=== PATIENT | female | born 1990 | race African-American/Black ===

== ENCOUNTER 2017-07-09 22:25 | Inpatient (IN) | payer SELFPAY ==
[2017-07-09] MEDS: IOHEXOL 300 MG/ML 100ML VIAL. IV (01:00)
[2017-07-09] MEDS: IOHEXOL 240 MG/ML 50ML VIAL. PO (01:00)
[2017-07-09 23:05] LABS: ADD MAN DIFF? NO
[2017-07-09 23:06] LABS: BASO # 0.1 x10^3/uL (0.0-0.2); BASO % 1 % (0-3); EOS # 0.2 x10^3/uL (0.0-0.7); EOS % 3 % (0-3); HEMATOCRIT 36.8 % (36.0-47.0); HEMOGLOBIN 11.6 g/dL (12.0-15.5); LYMPH # 1.8 x10^3/uL (1.0-4.8); LYMPH % 22 % (24-48); MEAN CORPUSCULAR HEMOGLOBIN 23 pg (25-35); MEAN CORPUSCULAR HGB CONC 32 g/dL (31-37); MEAN CORPUSCULAR VOLUME 73 fL (79-100); MONO # 0.6 x10^3/uL (0.0-1.1); MONO % 8 % (0-9); NEUT # 5.3 x10^3uL (1.8-7.7); NEUT % 66 % (31-73); PLATELET COUNT 458 x10^3/uL (140-400); RED BLOOD COUNT 5.02 x10^6/uL (3.50-5.40); RED CELL DISTRIBUTION WIDTH 18.3 % (11.5-14.5)
[2017-07-09] MEDS ORDERED: CONTRAST GIVEN MC (23:15)
[2017-07-09] MEDS: ONDANSETRON PF 4 MG/2 ML VIAL. IV (23:17)
[2017-07-09] MEDS: MORPHINE SULFATE 4 MG/ML DISP.SYRIN. IV (23:17)
[2017-07-09] MEDS: MIDAZOLAM HCL/PF 2 MG/2 ML VIAL. IV (23:17)
[2017-07-09 23:19] LABS: ANION GAP 10 (6-14); BLOOD UREA NITROGEN 8 mg/dL (7-20); BUN/CREATININE RATIO 13 (6-20); CALCIUM 8.8 mg/dL (8.5-10.1); CARBON DIOXIDE 25 mmol/L (21-32); CHLORIDE 105 mmol/L (98-107); CREATININE 0.6 mg/dL (0.6-1.0); GFR 145.1; GLUCOSE 88 mg/dL (70-99); POTASSIUM 3.2 mmol/L (3.5-5.1); SODIUM 140 mmol/L (136-145)
[2017-07-09 23:23] LABS: URINE HCG POC HCG NEGATIVE (Negative)
[2017-07-09 23:23] LABS: BILIRUBIN,URINE SMALL (NEG); CLARITY,URINE CLEAR; COLOR,URINE AMBER; GLUCOSE,URINE NEGATIVE (NEG); NITRITE,URINE NEGATIVE (NEG); PH,URINE 6.5; PROTEIN,URINE NEGATIVE (NEG-TRACE); UROBILINOGEN,URINE >=8.0 mg/dL (0.2 mg/dL)
[2017-07-09 23:26] LABS: ALBUMIN 3.2 g/dL (3.4-5.0); ALBUMIN/GLOBULIN RATIO 0.7 (1.0-1.7); ALK PHOS 105 U/L (46-116); ALT (SGPT) 68 U/L (14-59); AST (SGOT) 178 U/L (15-37); TOTAL BILIRUBIN 0.4 mg/dL (0.2-1.0); TOTAL PROTEIN 7.5 g/dL (6.4-8.2)
[2017-07-09 23:28] LABS: BACTERIA,URINE 0 /HPF (0-FEW); HYALINE CASTS, URINE FEW /HPF; RBC,URINE OCC /HPF (0-2); SQUAMOUS EPITHELIAL CELL,UR OCC /LPF
[2017-07-09 23:30] LABS: BARBITURATES NEG (NEG); BENZODIAZEPINES NEG (NEG); CANNABINOIDS NEG (NEG); COCAINE NEG (NEG); METHADONE NEG (NEG); OPIATES NEG (NEG); PHENCYCLIDINE NEG (NEG)
[2017-07-09 23:33] LABS: AMPHETAMINE/METHAMPHETAMINE NEG (NEG); ETHANOL, URINE POS (NEG)
[2017-07-09 23:40] LABS: LIPASE 3566 U/L (73-393)
[2017-07-10] MEDS: MORPHINE SULFATE 4 MG/ML DISP.SYRIN. IV ×2 (00:30→20:51)
[2017-07-10] MEDS ORDERED: INFLUENZA VAX SCREEN BY RX. MC (09:00)
[2017-07-10] MEDS ORDERED: PNEUMOCOCCAL VAX SCREEN BY RX. MC (09:00)
[2017-07-10] MEDS: PNEUMOC CONJ VACC 23-VALENT 0.5 ML VIAL. VAX IM (09:32)
[2017-07-10] MEDS: FLU VACC QS2017-18 (36MOS+)/PF 0.5 ML SYRINGE. VAX IM (09:33)
[2017-07-10] MEDS: ACETAMINOPHEN 325 MG TABLET. PO (13:31)
[2017-07-10] MEDS: PANTOPRAZOLE 40 MG TABLET.DR. PO (16:45)
[2017-07-10] MEDS: IV NORMAL SALINE 1000ML BAG 1,000 ML IV (16:46)
[2017-07-11] MEDS: MORPHINE SULFATE 4 MG/ML DISP.SYRIN. IV ×4 (02:58→22:23)
[2017-07-11] MEDS: PANTOPRAZOLE 40 MG TABLET.DR. PO (08:16)
[2017-07-12] MEDS: MORPHINE SULFATE 4 MG/ML DISP.SYRIN. IV ×2 (03:31→23:39)
[2017-07-12] MEDS: fentaNYL PF VIAL 100 MCG/2 ML VIAL IV ×5 (05:23→22:28)
[2017-07-12] MEDS: PANTOPRAZOLE 40 MG TABLET.DR. PO ×2 (07:30→08:18)
[2017-07-12 10:28] LABS: ADD MAN DIFF? NO
[2017-07-12 10:46] LABS: BASO # 0.2 x10^3/uL (0.0-0.2); BASO % 3 % (0-3); EOS # 0.6 x10^3/uL (0.0-0.7); EOS % 10 % (0-3); HEMATOCRIT 34.8 % (36.0-47.0); HEMOGLOBIN 10.6 g/dL (12.0-15.5); LYMPH # 1.6 x10^3/uL (1.0-4.8); LYMPH % 28 % (24-48); MEAN CORPUSCULAR HEMOGLOBIN 23 pg (25-35); MEAN CORPUSCULAR HGB CONC 31 g/dL (31-37); MEAN CORPUSCULAR VOLUME 74 fL (79-100); MONO # 0.7 x10^3/uL (0.0-1.1); MONO % 11 % (0-9); NEUT # 2.9 x10^3uL (1.8-7.7); NEUT % 48 % (31-73); PLATELET COUNT 379 x10^3/uL (140-400); RED BLOOD COUNT 4.69 x10^6/uL (3.50-5.40); RED CELL DISTRIBUTION WIDTH 18.4 % (11.5-14.5)
[2017-07-12 10:57] LABS: ALBUMIN 2.6 g/dL (3.4-5.0); ALBUMIN/GLOBULIN RATIO 0.7 (1.0-1.7); ALK PHOS 118 U/L (46-116); ALT (SGPT) 107 U/L (14-59); ANION GAP 7 (6-14); AST (SGOT) 43 U/L (15-37); BLOOD UREA NITROGEN 3 mg/dL (7-20); BUN/CREATININE RATIO 5 (6-20); CALCIUM 8.5 mg/dL (8.5-10.1); CARBON DIOXIDE 28 mmol/L (21-32); CHLORIDE 106 mmol/L (98-107); CREATININE 0.6 mg/dL (0.6-1.0); GFR 145.1; GLUCOSE 81 mg/dL (70-99); LIPASE 72 U/L (73-393); POTASSIUM 3.9 mmol/L (3.5-5.1); SODIUM 141 mmol/L (136-145); TOTAL BILIRUBIN 0.2 mg/dL (0.2-1.0); TOTAL PROTEIN 6.3 g/dL (6.4-8.2)
[2017-07-12 11:50] LABS: HYPOCHROMIA PRESENT; MICROCYTOSIS PRESENT; PLT ESTIMATE ADEQUATE (ADEQUATE); POLYCHROMASIA PRESENT
[2017-07-12] MEDS: ONDANSETRON PF 4 MG/2 ML VIAL. IV (19:16)
[2017-07-13] MEDS: ACETAMINOPHEN 325 MG TABLET. PO (01:03)
[2017-07-13] MEDS: ONDANSETRON PF 4 MG/2 ML VIAL. IV (01:04)
[2017-07-13] MEDS: fentaNYL PF VIAL 100 MCG/2 ML VIAL IV ×5 (04:37→19:20)
[2017-07-13] MEDS: PANTOPRAZOLE 40 MG TABLET.DR. PO (07:56)
[2017-07-13] MEDS: MORPHINE SULFATE 4 MG/ML DISP.SYRIN. IV ×3 (10:02→22:50)
[2017-07-14] MEDS: ACETAMINOPHEN 325 MG TABLET. PO (00:12)
[2017-07-14] MEDS: fentaNYL PF VIAL 100 MCG/2 ML VIAL IV ×5 (00:13→22:52)
[2017-07-14] MEDS: MORPHINE SULFATE 4 MG/ML DISP.SYRIN. IV (04:00)
[2017-07-14 04:29] LABS: ADD MAN DIFF? NO
[2017-07-14 04:34] LABS: BASO # 0.1 x10^3/uL (0.0-0.2); BASO % 1 % (0-3); EOS # 0.7 x10^3/uL (0.0-0.7); EOS % 9 % (0-3); HEMATOCRIT 31.6 % (36.0-47.0); LYMPH # 2.3 x10^3/uL (1.0-4.8); LYMPH % 31 % (24-48); MEAN CORPUSCULAR HEMOGLOBIN 24 pg (25-35); MEAN CORPUSCULAR HGB CONC 32 g/dL (31-37); MEAN CORPUSCULAR VOLUME 75 fL (79-100); MONO # 0.6 x10^3/uL (0.0-1.1); MONO % 8 % (0-9); NEUT # 3.8 x10^3uL (1.8-7.7); NEUT % 51 % (31-73); PLATELET COUNT 379 x10^3/uL (140-400); RED BLOOD COUNT 4.24 x10^6/uL (3.50-5.40); RED CELL DISTRIBUTION WIDTH 18.4 % (11.5-14.5); WHITE BLOOD COUNT 7.5 x10^3/uL (4.0-11.0)
[2017-07-14 04:52] LABS: ANION GAP 9 (6-14); BLOOD UREA NITROGEN 7 mg/dL (7-20); CALCIUM 8.7 mg/dL (8.5-10.1); CARBON DIOXIDE 25 mmol/L (21-32); CHLORIDE 108 mmol/L (98-107); CREATININE 0.6 mg/dL (0.6-1.0); GFR 145.1; GLUCOSE 78 mg/dL (70-99); LIPASE 60 U/L (73-393); POTASSIUM 3.9 mmol/L (3.5-5.1); SODIUM 142 mmol/L (136-145)
[2017-07-14] MEDS ORDERED: LIDOCAINE 1% PF 2 ML VIAL. ID (07:00)
[2017-07-14] MEDS ORDERED: MORPHINE SULFATE 2 MG/ML DISP.SYRIN. IV (07:00)
[2017-07-14] MEDS ORDERED: fentaNYL PF VIAL 100 MCG/2 ML VIAL IV (07:00)
[2017-07-14] MEDS ORDERED: ONDANSETRON PF 4 MG/2 ML VIAL. IV (07:00)
[2017-07-14] MEDS ORDERED: PROCHLORPERAZINE 10 MG/2 ML VIAL. IV (07:00)
[2017-07-14] MEDS: PANTOPRAZOLE 40 MG TABLET.DR. PO (07:30)
[2017-07-14] MEDS ORDERED: SURGICEL HEMOSTAT 4X8 EACH. (09:18)
[2017-07-14] MEDS: IOHEXOL 300 MG/ML 100ML VIAL. (09:29)
[2017-07-14] MEDS: BUPIVAC MPF-EPI 0.5%-1:200000 30 ML VIAL. (09:29)
[2017-07-14] MEDS: BUPIVAC MPF-EPI 0.5%-1:200000 30 ML VIAL. INJ (09:30)
[2017-07-14] MEDS: IV RINGERS,LACTATED 1000ML 1,000 ML IV (10:13)
[2017-07-14] MEDS ORDERED: ROCURONIUM 50 MG/5 ML VIAL. (10:23)
[2017-07-14] MEDS ORDERED: fentaNYL PF VIAL 100 MCG/2 ML VIAL ×2 (10:23→11:09)
[2017-07-14] MEDS ORDERED: KETOROLAC 30 MG/ML INJ FOR OR. INJ (10:24)
[2017-07-14] MEDS ORDERED: DESFLURANE 61 TO 120 MINUTES IH (10:24)
[2017-07-14] MEDS ORDERED: ONDANSETRON PF 4 MG/2 ML VIAL. (10:24)
[2017-07-14] MEDS ORDERED: FAMOTIDINE 20 MG/2 ML VIAL (10:24)
[2017-07-14] MEDS ORDERED: PROPOFOL 20 ML IV (10:24)
[2017-07-14] MEDS ORDERED: LIDOCAINE 2% PF Vial for OR 5 ML VIAL. (10:24)
[2017-07-14] MEDS ORDERED: DEXAMETHASONE SOD PHOS 20 MG/5 ML VIAL. (10:25)
[2017-07-14] MEDS ORDERED: NEOSTIGMINE METHYLSULFATE 5 MG/5 ML SYRINGE. (11:05)
[2017-07-14] MEDS ORDERED: GLYCOPYRROLATE 1 MG/5 ML VIAL. (11:05)
[2017-07-14] MEDS ORDERED: MORPHINE SULFATE 10 MG/ML VIAL. (11:50)
[2017-07-14] MEDS: HYDROmorphone 2 MG/ML VIAL IV ×3 (12:05→12:33)
[2017-07-14] MEDS: oxyCODONE/APAP 5/325 1 TAB TABLET PO ×2 (17:46→21:33)
[2017-07-14] MEDS: ONDANSETRON PF 4 MG/2 ML VIAL. IV (18:10)
[2017-07-15] MEDS: oxyCODONE/APAP 5/325 1 TAB TABLET PO ×5 (02:03→21:38)
[2017-07-15] MEDS: MORPHINE SULFATE 4 MG/ML DISP.SYRIN. IV ×5 (04:05→21:38)
[2017-07-15 04:42] LABS: BASO % 0 % (0-3); EOS % 0 % (0-3); LYMPH % 8 % (24-48); MEAN CORPUSCULAR HEMOGLOBIN 23 pg (25-35); MEAN CORPUSCULAR HGB CONC 32 g/dL (31-37); MEAN CORPUSCULAR VOLUME 74 fL (79-100); MONO # 0.6 x10^3/uL (0.0-1.1); MONO % 4 % (0-9); NEUT # 11.3 x10^3uL (1.8-7.7); NEUT % 87 % (31-73); PLATELET COUNT 417 x10^3/uL (140-400); RED BLOOD COUNT 4.73 x10^6/uL (3.50-5.40); RED CELL DISTRIBUTION WIDTH 18.8 % (11.5-14.5)
[2017-07-15 05:29] LABS: ADD MAN DIFF? YES
[2017-07-15 06:00] LABS: ANION GAP 11 (6-14); BLOOD UREA NITROGEN 7 mg/dL (7-20); CALCIUM 8.7 mg/dL (8.5-10.1); CARBON DIOXIDE 24 mmol/L (21-32); CHLORIDE 105 mmol/L (98-107); CREATININE 0.7 mg/dL (0.6-1.0); GFR 121.5; GLUCOSE 163 mg/dL (70-99); SODIUM 140 mmol/L (136-145)
[2017-07-15] MEDS: PANTOPRAZOLE 40 MG TABLET.DR. PO (08:38)
[2017-07-15 08:58] LABS: % BANDS 1 % (0-9); % LYMPHS 14 % (24-48); % MONOS 3 % (0-10); % SEGS 82 % (35-66); ANISOCYTOSIS PRESENT; PLT ESTIMATE INCREASED (ADEQUATE)
[2017-07-16] MEDS: MORPHINE SULFATE 4 MG/ML DISP.SYRIN. IV (02:32)
[2017-07-16] MEDS: oxyCODONE/APAP 5/325 1 TAB TABLET PO ×3 (02:32→14:49)
[2017-07-16 04:40] LABS: ADD MAN DIFF? NO; BASO # 0.1 x10^3/uL (0.0-0.2); BASO % 1 % (0-3); EOS # 0.3 x10^3/uL (0.0-0.7); EOS % 4 % (0-3); HEMATOCRIT 32.1 % (36.0-47.0); HEMOGLOBIN 10.3 g/dL (12.0-15.5); LYMPH # 2.3 x10^3/uL (1.0-4.8); LYMPH % 30 % (24-48); MEAN CORPUSCULAR HEMOGLOBIN 24 pg (25-35); MEAN CORPUSCULAR HGB CONC 32 g/dL (31-37); MEAN CORPUSCULAR VOLUME 74 fL (79-100); MONO # 0.7 x10^3/uL (0.0-1.1); MONO % 9 % (0-9); NEUT # 4.3 x10^3uL (1.8-7.7); NEUT % 56 % (31-73); PLATELET COUNT 368 x10^3/uL (140-400); RED BLOOD COUNT 4.36 x10^6/uL (3.50-5.40); RED CELL DISTRIBUTION WIDTH 18.2 % (11.5-14.5); WHITE BLOOD COUNT 7.7 x10^3/uL (4.0-11.0)
[2017-07-16 05:18] LABS: ANION GAP 9 (6-14); BLOOD UREA NITROGEN 9 mg/dL (7-20); CALCIUM 8.8 mg/dL (8.5-10.1); CARBON DIOXIDE 26 mmol/L (21-32); CHLORIDE 108 mmol/L (98-107); CREATININE 0.7 mg/dL (0.6-1.0); GFR 121.5; GLUCOSE 80 mg/dL (70-99); POTASSIUM 4.1 mmol/L (3.5-5.1); SODIUM 143 mmol/L (136-145)
[2017-07-16] MEDS: PANTOPRAZOLE 40 MG TABLET.DR. PO (09:09)
== END 2017-07-16 19:22 | disposition home or self-care (01) | DRG 417 ==
LOC: 6 SOUTH 07-10 01:58 → ER 22:25
PROC: 0FT44ZZ Resection of Gallbladder, Percutaneous Endoscopic Approach (ICD-10-PCS; principal; 2017-07-14 10:33)
PROC: BF121ZZ Fluoroscopy of Gallbladder using Low Osmolar Contrast (ICD-10-PCS; 2017-07-14 10:33)
DX: K80.20 Calculus of gallbladder without cholecystitis without obstruction (principal); K85.10 Biliary acute pancreatitis without necrosis or infection; Z68.43 Body mass index [BMI] 50.0-59.9, adult; E66.9 Obesity, unspecified; D64.9 Anemia, unspecified; E03.9 Hypothyroidism, unspecified; F10.10 Alcohol abuse, uncomplicated; F17.200 Nicotine dependence, unspecified, uncomplicated; Z82.49 Family history of ischemic heart disease and other diseases of the circulatory system; Z86.718 Personal history of other venous thrombosis and embolism; Z98.84 Bariatric surgery status
CPT/HCPCS: 36415; 74177; 74300; 76705; 80048; 80053; 80307; 81001; 81025; 83690; 85007; 85025; 88304; 90686; 90732; 99285; 99285-25; C1769; J0690; J1100; J1170; J1885; J2250; J2270; J2405; J2704; J2710; J3010; J3490; J7030; J7120; Q9966; Q9967; S0028